=== PATIENT | female | born 1950 | race Caucasian/White ===

== ENCOUNTER 2019-01-10 11:40 | Emergency (ER) | payer MEDICARE, OTHER ==
--- OUTSIDE RECORDS SUMMARY | 2019-01-10 11:54 | XMS REPORT | Continuity of Care Document ---
:1950 External Reference #:[id number] Author Name Kenji Bagley MD Address [address] [place] [address] Care Team Providers Name Role Phone Jovany Hmuphrey NP Care Team Information [employer] Unavailable Jovany Humphrey NP Primary Care Physician Unavailable Payers Date Identification Numbers Payment Provider Subscriber Policy Number: [id number] [employer] Purnima Rajan PayID: [id number] [address] [place] [address] Policy Number: [id number] [facility] Purnima Rajan PayID: [id number] [address] [place] [address] Advance Directives Description No Information Available Problems Active Problems Provider Date Crohn's disease of large bowel Donell Crouch M.D. 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 Patient drives Tobacco Use Start: Unknown Never Smoked Cigarettes ETOH Use Rarely consumes alcohol Tobacco Use Start: Unknown Patient has never smoked Recreational Drug Use Never Used Drugs Smoking Status Reviewed: 12/27/18 Patient has never smoked Exercise Type/Frequency Exercises regularly Allergies, Adverse Reactions, Alerts Active Allergies Reaction Severity Comments Date Penicillins Difficulty breathing 07/07/2013 Tetracycline 07/07/2013 Demerol 07/07/2013 Prednisone Jittery and racing heart 07/07/2013 Bee Sting 07/07/2013 Dye 07/20/2013 Lovastatin 12/20/2014 NSAIDs pt has ulcerative 01/24/2015 colitis Medications Active Medications SIG Qnty Indications Ordering Date Provider Cyclobenzaprine HCL one tablet by 30tabs M54.5 Glendy Dickey, 06/17/2017 10mg mouth every night MD Tablets at bedtime prn Fioricet 1-2 po q6h prn Unknown 50-325-40mg h/a Tablets Magnesium one daily Unknown 400mg Capsules Riboflavin one daily Unknown 400mg Tablets Acidophilus Unknown Capsules Vitamin E one daily Unknown 400Unit Capsules Vitamin C one daily Unknown 1000mg Tablets Fluticasone Propionate Unknown 50mcg/Act Suspension Humira use under the Unknown 40mg/0.8ML PSKT skin every other week Apriso 4 caps by mouth Unknown 0.375gm Caps ER 24HR every day Arnuity Ellipta take 1 puff once Unknown 200mcg/Act a day. Aerosol Zyrtec Allergy 1 tab by mouth Unknown 10mg Tablets every night Claritin 1 tab by mouth Unknown 10mg Tablets every day as needed Ventolin HFA take 2 puffs Unknown 108(90Base) every 6 hours as mcg/Act Aerosol needed for shortness of breath. History Medications Enoxaparin Sodium 1 injection 30units Jaspreet Breaux, 03/19/2015 - subcutaneous every M.D. Unknown 40mg/0.4ML Solution day Rowasa one week; use QS 569.49 Miko, 08/16/2013 - 4gm Kit eneam bid Donell Garza, 12/20/2014 M.DDell Lovastatin 1/2 by mouth every 30tabs Unknown - 20mg Tablets day 12/20/2014 Oxybutynin Chloride po qd Unknown - 5mg Unknown Tablets Ibuprofen prn Unknown - 400mg Tablets 12/20/2014 Advair Diskus 1 puff bid Unknown - 12/20/2014 100-50mcg/Dose Aerosol Claritin prn Unknown - 10mg Capsules Unknown Theochron 1 by mouth every Unknown - 200mg Tablets day 12/20/2014 ER 12HR Cyclobenzaprine HCL 1 by mouth at 30tabs Unknown - bedtime as needed Unknown 10mg Tablets Colocort Unknown - 100mg/60ML Unknown Enema Calcium + D Unknown - 600-800 Unknown Tablets Apriso Unknown - 0.375gm Caps ER Unknown 24HR Hydrocodone-Acetamino Unknown - phen 03/19/2015 5-325mg Tablets Proctosol HC Unknown - 2.5% Cream Unknown Cyclobenzaprine HCL Unknown - Unknown 10mg Tablets Theochron Unknown - 200mg Tablets Unknown ER 12HR Medications Administered in Office Medication SIG Qnty Indications Ordering Provider Date Methylprednisolone acetate Fawn Lipscomb, 12/20/2014 (Depomedrol) 80mg injection RPAC Injection Immunizations Description No Information Available Vital Signs Date Vital Result Comment 12/27/2018 3:03pm BP Systolic Sitting Left Arm 120 mmHg BP Diastolic Sitting Left Arm 68 mmHg Heart Rate 75 /min Respiratory Rate 16 /min Height 65 inches 5'5" Weight 161.00 lb BMI (Body Mass Index) 26.8 kg/m2 BSA (Body Surface Area) 1.80 m2 [place] body weight in kilograms 57 kg O2 Saturation Level with Exercise 93 % 11/23/2018 1:06pm BP Systolic Sitting Left Arm 120 mmHg BP Diastolic Sitting Left Arm 66 mmHg Heart Rate 74 /min Respiratory Rate 18 /min Height 65 inches 5'5" Weight 164.00 lb BMI (Body Mass Index) 27.3 kg/m2 BSA (Body Surface Area) 1.82 m2 [place] body weight in kilograms 57 kg O2 % BldC Oximetry 98 % 07/24/2017 8:42am BP Systolic Sitting Left Arm 130 mmHg BP Diastolic Sitting Left Arm 79 mmHg Body Temperature 98.5 F Heart Rate 56 /min Height 65 inches 5'5" Weight 161.00 lb BMI (Body Mass Index) 26.8 kg/m2 BSA (Body Surface Area) 1.80 m2 [place] body weight in kilograms 57 kg 06/17/2017 9:51am BP Systolic Sitting Left Arm 112 mmHg BP Diastolic Sitting Left Arm 67 mmHg Body Temperature 99.1 F Heart Rate 65 /min Height 65 inches 5'5" Weight 158.00 lb BMI (Body Mass Index) 26.3 kg/m2 BSA (Body Surface Area) 1.79 m2 [place] body weight in kilograms 57 kg 05/27/2017 9:19am BP Systolic Sitting Left Arm 131 mmHg BP Diastolic Sitting Left Arm 71 mmHg Body Temperature 98.6 F Heart Rate 67 /min Height 65 inches 5'5" Weight 158.00 lb BMI (Body Mass Index) 26.3 kg/m2 BSA (Body Surface Area) 1.79 m2 [place] body weight in kilograms 57 kg 02/26/2015 10:10am Heart Rate 60 /min Height 65 inches 5'5" Weight 153.00 lb BMI (Body Mass Index) 25.5 kg/m2 BSA (Body Surface Area) 1.77 m2 12/20/2014 2:46pm BP Systolic Sitting Left Arm 138 mmHg BP Diastolic Sitting Left Arm 77 mmHg Height 64 inches 5'4" Weight 154.00 lb BMI (Body Mass Index) 26.4 kg/m2 BSA (Body Surface Area) 1.75 m2 07/20/2013 11:31am BP Systolic Sitting Right Arm 113 mmHg BP Diastolic Sitting Right Arm 68 mmHg Heart Rate 57 /min Respiratory Rate 16 /min Height 64 inches 5'4" Weight 152.00 lb BMI (Body Mass Index) 26.1 kg/m2 BSA (Body Surface Area) 1.74 m2 Results Test Date Facility Test Result H/L Range Note Allergens,Zone 11/23/2018 [facility] mRast Class (SEE NOTE) 1, [address] (Text Only) [place] [address] [phone] D Pteronyssinus <0.10 kU/L Class 0 D Farinae Mite <0.10 kU/L Class 0 Cat Hair/Dander <0.10 kU/L Class 0 Dog Hair/Dander <0.10 kU/L Class 0 Bluegrass,[place] <0.10 kU/L Class 0 Bermuda Grass <0.10 kU/L Class 0 Bahia Grass <0.10 kU/L Class 0 Cockroach,Ghanaian <0.10 kU/L Class 0 Penicillium Not <0.10 kU/L Class 0 Cladosporium Herbarum <0.10 kU/L Class 0 Apergillis Fumigatus Ige <0.10 kU/L Class 0 Mucor Racemosus <0.10 kU/L Class 0 Alternaria Alternata <0.10 kU/L Class 0 Stemphylium Bot <0.10 kU/L Class 0 Birch,White <0.10 kU/L Class 0 Artesia,White <0.10 kU/L Class 0 Elm,Ghanaian (White) <0.10 kU/L Class 0 Kel,White <0.10 kU/L Class 0 Hazelnut Tree T004 Ige <0.10 kU/L Class 0 White Pine,White <0.10 kU/L Class 0 Marion,White <0.10 kU/L Class 0 Dubois,Mountain <0.10 kU/L Class 0 Ragweed,Short/ <0.10 kU/L Class 0 Mugwort <0.10 kU/L Class 0 Plantain,Macanese <0.10 kU/L Class 0 Pigweed,Rough <0.10 kU/L Class 0 Sheep Runnells (DO <0.10 kU/L Class 0 Nettle <0.10 kU/L Class 0 Maple/[place] Ige T001 <0.10 kU/L Class 0 CBC W/Automated Diff 11/23/2018 [facility] White Blood 6.6 K/uL N 3.1-10.[address] [place] [address] [phone] Red Blood Count 4.53 M/uL N 3.90-5.40 Hemoglobin 12.9 gm/dL N 11.6-15.8 Hematocrit 39.6 % N 36.0-46.1 Mean Cell Volume 87.4 fl N 80.9-99.0 Mean Corpuscular HGB 28.5 pg N 25.9-32.7 Mean Corpuscular HGB Conc 32.6 g/dL N 30.8-34.3 Platelet Count 279 K/uL N 155-360 Red Cell Distri Width SD 42.3 fl N 36-47 Red Cell Distri Width %CV 13.6 % N 11.7-14.4 Mean Platelet Volume 9.4 fL N 8.9-12.4 Neut% 58.2 % N 40.4-72.8 Lymph % 30.2 % N 20.0-42.0 Mifflin % 10.2 % N 4.3-13.2 Eo% 1.2 % N 0.0-6.6 Bas% 0.2 % N 0.0-1.1 Neut# 3.84 K/uL N 1.8-7.0 Lymph # 1.99 K/uL N 1.0-4.0 Mifflin # 0.67 K/uL N 0.3-0.9 Eos # 0.08 K/uL N 0.0-0.5 Baso # 0.01 K/uL N 0.0-0.1 Laboratory test 11/23/2018 [facility] Immunoglobulin 12 6-[address] E,Total IU/[place] [address] [phone] Glucose 04/14/2017 N2N/CCD Import Glucose 88 74-106 [Mass/volume] in [Mass/volume] in Serum or Plasma Serum or Plasma Hct VFr Bld Auto 04/14/2017 N2N/CCD Import Hct VFr Bld Auto 40.1 36.0- 46.1 MCV RBC Auto 04/14/2017 N2N/CCD Import MCV RBC Auto 87.6 80.9-99.0 PMV Bld Auto 04/14/2017 N2N/CCD Import PMV Bld Auto 10.0 8.9-12.4 Platelets 04/14/2017 N2N/CCD Import Platelets 322 150-400 [#/volume] in [#/volume] in Blood by Automated Blood by Automated count count Potassium 04/14/2017 N2N/CCD Import Potassium 4.1 3.5-5.1 SerPl-sCnc SerPl-sCnc Prot SerPl-mCnc 04/14/2017 N2N/CCD Import Prot SerPl-mCnc 7.8 6.4-8.2 RDW RBC Auto-Rto 04/14/2017 N2N/CCD Import RDW RBC Auto-Rto 13.3 11.7- 14.4 Serum or plasma 04/14/2017 N2N/CCD Import Serum or plasma 0.2 0.2-1.0 total bilirubin total bilirubin measurement (mass/ measurement (mass/volume) Sodium SerPl-sCnc 04/14/2017 N2N/CCD Import Sodium SerPl-sCnc 140 136- 145 WBC # Bld Auto 04/14/2017 N2N/CCD Import WBC # Bld Auto 7.1 3.1-10.7 Alp SerPl-cCnc 04/14/2017 N2N/CCD Import Alp SerPl-cCnc 78 45-117 Alt SerPl-cCnc 04/14/2017 N2N/CCD Import Alt SerPl-cCnc 30 12-78 Albumin SerPl-mCnc 04/14/2017 N2N/CCD Import Albumin SerPl-mCnc 4.0 3.4- 5.0 Albumin/Glob SerPl 04/14/2017 N2N/CCD Import Albumin/Glob SerPl 1.1 Anion Gap 04/14/2017 N2N/CCD Import Anion Gap 8 8-16 SerPl-sCnc SerPl-sCnc Aspartate 04/14/2017 N2N/CCD Import Aspartate 22 15-37 aminotransferase aminotransferase [Enzymatic [Enzymatic activity/vol activity/volume] in Serum or Plasma Automated 04/14/2017 N2N/CCD Import Automated 28.6 25.9-32.7 erythrocyte mean erythrocyte mean corpuscular corpuscular hemoglobin hemoglobin (mass per erythrocyte) Automated 04/14/2017 N2N/CCD Import Automated 32.7 30.8-34.3 erythrocyte mean erythrocyte mean corpuscular corpuscular hemoglobin hemoglobin concentration measurement (mass/volume) BUN SerPl-mCnc 04/14/2017 N2N/CCD Import BUN SerPl-mCnc 15 7-18 BUN/Creat SerPl 04/14/2017 N2N/CCD Import BUN/Creat SerPl 21.4 Blood erythrocytes 04/14/2017 N2N/CCD Import Blood erythrocytes 4.58 3.90-5.40 automated count automated count (number/volume) (number/volume) Blood hemoglobin 04/14/2017 N2N/CCD Import Blood hemoglobin 13.1 11.6- 15.8 measurement measurement (mass/volume) (mass/volume) Co2 SerPl-sCnc 04/14/2017 N2N/CCD Import Co2 SerPl-sCnc 30 21-32 Calcium SerPl-mCnc 04/14/2017 N2N/CCD Import Calcium SerPl-mCnc 8.8 8.5- 10.1 Chloride 04/14/2017 N2N/CCD Import Chloride 102 98-107 SerPl-sCnc SerPl-sCnc Creat SerPl-mCnc 04/14/2017 N2N/CCD Import Creat SerPl-mCnc 0.7 0.6-1.3 Erythrocyte 04/14/2017 N2N/CCD Import Erythrocyte 3 0-30 sedimentation rate sedimentation rate by 15 minute by 15 minute readin reading Globulin Ser 04/14/2017 N2N/CCD Import Globulin Ser 3.8 1.9-4.3 Calc-mCnc Calc-mCnc Laboratory test 08/16/2013 [facility] Polyp Colon And/Or See cryptitis [address] [place] [place] [address] [phone] 1 J30.89 2 Levels of Specific IgE Class Description of Class ----- < 0.10 0 Negative 0.10 - 0.31 0/I Equivocal/Low 0.32 - 0.55 I Low 0.56 - 1.40 II Moderate 1.41 - 3.90 III High 3.91 - 19.00 IV Very High 19.01 - 100.00 V Very High >100.00 Very High 3 Please note reference interval change Test(s) [id number] Cockroach, Ghanaian; 609154- [id number] Elsy Isaac were developed and had performance characteristics determined by [facility]. These tests have not been cleared or approved by the U.S. Food and Drug Administration. The FDA has determined that such clearance or approval is not necessary. These tests are used for clinical purposes. These should not be regarded as investigational or for research. Performed at: [address] [id number] [place] Mason: Zoila Tracy MD, Phone: [phone] OPERATION/PROCEDURE Colonoscopy with biopsies DIAGNOSIS: PART 1: "SIGMOID COLON, RANDOM BIOPSIES": COLITIS, MODERATE, WITH CRYPTITIS. PART 2: "RECTUM, BIOPSIES": PROCTITIS, MODERATE, WITH CRYPTITIS. Luis Alberto GROSS Part 1; "RANDOM SIGMOID BIOPSIES". The specimen is received in an appropriately labeled container. This contains one rounded dsouza colored piece of soft tissue measuring up to 0.4 cm.; filtered and submitted in toto within a single cassette. Part 2; "RECTAL BIOPSIES". The specimen is received in an appropriately labeled container. This contains two rounded dsouza colored pieces of soft tissue measuring up to 0.2 cm.; filtered and submitted in toto within a single cassette. Luis Alberto MICROSCOPIC Part 1: Sections reveal markedly inflamed colonic mucosa with hemorrhage, and confluent acute and chronic inflammation. Inflammatory cells surround and infiltrate individual glands. The glands are shortened, angularly distorted, with markedly increased crypt mitotic activity. Crypt abscesses are not seen. Part 2: Sections reveal markedly inflamed colonic mucosa with hemorrhage, and confluent acute and chronic inflammation. Inflammatory cells surround and infiltrate individual glands. The glands are shortened, angularly distorted, with markedly increased crypt mitotic activity. The nuclei within the crypts show regenerative atypia, with prominent nucleoli. PRE OPERATIVE DIAGNOSIS Rectal bleeding, change in bowel habits REVIEW CODE CODE: I ISABEL Jules MD 08/17/13 1310 Procedures Date Code Description Status 11/29/2018 74916 Bronchospasm Provocation Evaluation Multi Spirometric Completed Determinati 11/29/2018 17443 Spirometry Completed 03/06/2015 79639 Arthroscopy knee w/menisectomy med & lat including Completed meniscal shavi 03/06/2015 96700 Arthroscopy synovectomy limited (separate procedure) Completed 03/06/2015 12832 Anesthesia, Knee Joint Surgery Open/Surg Completed Arthroscopic,NOS 12/20/2014 27267 Asp./Injection major joint Completed 08/16/2013 67727 Colonoscopy With Biopsy Completed 05/22/2013 10870407 Mammogram Completed 02/16/2009 26324 Echocardiogram Complete Completed 02/16/2009 77482 Stress Test Interpre And Report Only Completed 02/16/2009 96148 Stress Test Physician Super Only Completed 09/21/2008 793936700 Bone Mineral Density Test Completed 09/21/1996 89070199 Colonoscopy Completed Encounters Type Date Location Provider Dx Diagnosis Office Visit 11/23/2018 Pulmonology Kenji Bagley MD J45.20 Mild intermittent 1:00p asthma, uncomplicated J30.89 Other allergic rhinitis Z01.818 Encounter for other preprocedural examination J32.9 Chronic sinusitis, unspecified Office Visit 07/24/2017 9:00a Physical Medicine Keli M47.896 Other spondylosis, & Infectious MD Glendy lumbar region Disease M54.5 Low back pain M25.571 Pain in right ankle and joints of right foot Office Visit 06/17/2017 10:00a Physical Medicine Glendy Dickey, M25.571 Pain in right & Infectious MD ankle and Disease joints of right foot M47.896 Other spondylosis, lumbar region M54.5 Low back pain Office Visit 05/27/2017 9:30a Physical Medicine Tonya Dickey7.896 Other spondylosis, & Infectious MD Glendy lumbar region Disease M54.5 Low back pain Office Visit 06/27/2015 9:15a Orthopaedic Office Jaspreet Breaux, M23.222 Derang of post M.D. 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 Lower Leg 717.2 Derangement Posterior Horn Medial Meniscus 717.43 Derangement Posterior Horn Lateral Meniscus Office Visit 01/24/2015 Orthopaedic Lipscomb, 715.16 Osteoarthrosis 9:00a Office Fawn S., Localized Prim RPAC Lower Leg 719.06 Effusion Joint Lower Leg 719.46 Pain Joint Lower Leg 717.2 Derangement Posterior Horn Medial Meniscus 717.43 Derangement Posterior Horn Lateral Meniscus Office Visit 01/15/2015 Orthopaedic Lipscomb, 715.16 Osteoarthrosis 8:45a Office Fawn S., Localized Prim RPAC Lower Leg 719.46 Pain Joint Lower Leg Office Visit 12/20/2014 Orthopaedic Lipscomb, 715.16 Osteoarthrosis 3:00p Office Fawn S., Localized Prim RPAC Lower Leg 719.46 Pain Joint Lower Leg Office Visit 09/01/2013 2:00p Surgical Miko, V67.09 Follow Up Office Donell Garza Examination Kathryn Following Other Surgery 555.1 Enteritis Large Intestine 562.10 Diverticulosis Colon W/O Hemorrhage Office Visit 07/20/2013 11:30a Surgical Office Miko, 569.3 Hemorrhage Donell Garza, Rectum & Anus MVishal 787.99 Digestive Symptoms Other V76.51 Special Screening For Malignant Neoplasms Colon Plan of Treatment Future Appointment(s):06/29/2019 8:20 am - Clarita Ulloa PA at [email or web address]/ 08/2019 - Kenji Bagley MDJ45.20 Mild intermittent asthma, uncomplicatedComments :I reviewed testing results. Symptoms of cough are likely related to asthma and allergies. Symptoms are better without any change in medication. Advised to continue with Arnuity and as needed albuterol.Follow up:6 months.J30.89 Other allergic rhinitisComments:Negative RAST, low IgE. Follow up with Dr. Donell Robles. Continue with Flonase and Claritin/Zyrtec. Can use Neti Pot if more symptomatic.
[2019-01-10 12:11] VITALS: BP 141/84
--- NOTE | 2019-01-10 12:55 | UC ---
UC General HPI - HPI Summary HPI Summary: 2 days ago, pt injury her L hand in an attempt to catch herself during a near fall. she notes pain along the back of her middle finger into the hand with swelling to back of the hand. 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 - History of Current Complaint Chief Complaint: UCUpperExtremity Stated Complaint: LEFT HAND INJURY Time Seen by Provider: 01/10/19 12:41 Hx Obtained From: Patient Timing: Constant Pain Intensity: 4 Aggravating: movement Associated Signs & Symptoms: Positive: Edema, Weakness. Negative: Fever - Allergy/Home Medications Allergies/Adverse Reactions: Allergies Allergy/AdvReac Type Severity Reaction Status Date / Time aspirin Allergy Bleeding Verified 01/10/19 12:03 ibuprofen Allergy Bleeding Verified 01/10/19 12:03 meperidine [From Demerol] Allergy syncope Verified 01/10/19 12:03 Penicillins Allergy Rash Verified 01/10/19 12:03 prednisone Allergy Tachycardia, Verified 01/10/19 12:03 shakes Tetracyclines Allergy Rash Verified 01/10/19 12:03 bee sting Allergy Anaphylatic Uncoded 01/10/19 12:03 Shock environmental Allergy Congestion Uncoded 01/10/19 12:03 statins Allergy Pain Uncoded 01/10/19 12:03 Home Medications: Home Medications Adalimumab (NF) [Humira (NF) Pen Injector Kit] 80 mg SUBCUT SEE INSTRUCTIONS [History Confirmed 01/10/19] Cetirizine* [ZyrTEC 10 MG TAB*] 10 mg PO DAILY 01/10/19 [History Confirmed 01/10] Desloratidine (NF) [Clarinex (NF)] 5 mg PO DAILY 01/10/19 [History Confirmed ] Fluticasone/Vilanterol [Breo Ellipta 200-25 Mcg INH] 1 each IH DAILY 01/10/19 [ History Confirmed 01/10/19] PMH/Surg Hx/FS Hx/Imm Hx - Additional Past Medical History Additional PMH: ulcerative colitis - Surgical History Surgical History: Yes Surgery Procedure, Year, and Place: left foot 06/17/18; sinus; other. knee - Family History Known Family History: Positive: Other - adopted...know little of her family history - Social History Alcohol Use: Rare Substance Use Type: None Smoking Status (MU): Never Smoked Tobacco Review of Systems All Other Systems Reviewed And Are Negative: No Constitutional: Negative: Fever Musculoskeletal: Positive: Edema - L dorsal hand. Negative: Decreased ROM Neurological: Positive: Weakness - L hand. Negative: Paresthesia, Numbness Physical Exam Triage Information Reviewed: Yes Appearance: Well-Appearing Vital Signs: Initial Vital Signs Temp 98.4 F 01/10/19 12:07 Pulse 62 01/10/19 12:07 Resp 16 01/10/19 12:07 BP 141/84 01/10/19 12:07 Pulse Ox 97 01/10/19 12:07 Vital Signs Reviewed: Yes Eyes: Positive: Conjunctiva Clear Respiratory: Positive: Lungs clear Cardiovascular: Positive: RRR Musculoskeletal: Positive: Other: - LUE= shoulder, elbow and wrist are non tender. hand=dorsal swelling and mild swelling into fingers. Tender over dorsal middle finger into corresponding hand. The fingers have full s/v/m function; however, extension of the middle finger against resistance causes pain and pt notes difficulty straigtening against the resistance. Neurological: Positive: Alert Psychological: Positive: Age Appropriate Behavior Skin Exam: Normal Diagnostics - Radiology No standard instances Radiology Interpretation Completed By: Radiologist - L hand=IMPRESSION: 1. OSTEOPENIA. 2. OSTEOARTHRITIS. 3. NO ACUTE OSSEOUS INJURY. IF SYMPTOMS PERSIST, RECOMMEND REPEAT IMAGING. Course/Dx - Course Course Of Treatment: PROCEDURE BY THIS PA: volar aluminum foam splint applied to L middle finer/palm and was held with an armin. fingers had s/v pre and post. - Differential Dx - Multi-Symptom Differential Diagnoses: Other - no concern for infection, dislocation and no fx on xray. exam c/w a L middle finger extensor tendon injury. loss of surtass analyst thus will refer to hand orthopedist - Diagnoses Provider Diagnosis: Tendon injury Discharge - Sign-Out/Discharge Documenting (check all that apply): Patient Departure All imaging exams completed and their final reports reviewed: Yes - Discharge Plan Condition: Stable Disposition: HOME Patient Education Materials: Splint Care (ED), Finger Sprain (ED) Referrals: Mita Lane MD [Medical Doctor] - As Soon As Possible - Billing Disposition and Condition Condition: STABLE Disposition: Home - Attestation Statements Provider Attestation: I was available for consult. This patient was seen by the ALAN. The patient was not presented to, seen by, or examined by me. -Amy
== END 2019-01-10 13:27 | disposition home or self-care (01) ==
LOC: UCCORT 11:40
DX: S66.902A Unspecified injury of unspecified muscle, fascia and tendon at wrist and hand level, left hand, initial encounter (principal); W18.30XA Fall on same level, unspecified, initial encounter; M85.842 Other specified disorders of bone density and structure, left hand; M19.042 Primary osteoarthritis, left hand; K51.90 Ulcerative colitis, unspecified, without complications; Z88.6 Allergy status to analgesic agent; Z88.0 Allergy status to penicillin; Z88.8 Allergy status to other drugs, medicaments and biological substances
CPT/HCPCS: 99212; G0463

== ENCOUNTER 2019-05-05 16:36 | Emergency (ER) | payer MEDICARE, OTHER ==
--- OUTSIDE RECORDS SUMMARY | 2019-05-05 16:45 | XMS REPORT | Continuity of Care Document ---
:1950 External Reference #:[id number] Author Name Jaimee Kelly Care Team Providers Name Role Phone Eliane Humphrey FNP Care Team Information Soc Analyst Unavailable Eliane Humphrey FNP Primary Care Physician Unavailable Payers Date Identification Numbers Payment Provider Subscriber Policy Number: [id number] [employer] Advant Purnima Rajan PayID: [id number] [address] [place] [address] Problems Active Problems Provider Date Allergic urticaria Donell Robles MD Onset: 09/01/2017 Allergy to other foods Donell Robles MD Onset: 09/01/2017 Idiopathic urticaria Olinda Mueller RPA-C Onset: 10/01/2017 Uncomplicated moderate persistent Olinda Mueller RPA-C Onset: 2017 asthma Allergic rhinitis due to pollen JOEY Parnell Onset: 2017 Allergic rhinitis Olinda Mueller RPA-C Onset: 10/01/2017 Social History Type Date Description Comments Sex Unknown Home Environment Does not have an air conditioner Home Environment Unfinished Basement Home Environment The basement is wet and sump pump used Home Environment There are draperies in the home Home Environment The floors are carpeted Home Environment The floors are tile Home Environment Uses oil heating Smoke-Free Home is smoke-free Smoke-Free Work is smoke-free Pets 1 cat Tobacco Use Start: Unknown Patient has never smoked Tobacco Use Start: Unknown No Second Hand Smoke Exposure Smoking Status Reviewed: 12/30/18 No Second Hand Smoke Exposure Allergies, Adverse Reactions, Alerts Active Allergies Reaction Severity Comments Date Penicillin 09/01/2017 Prednisone 09/01/2017 Tetracycline 09/01/2017 Meperidine 09/01/2017 Aspirin 09/01/2017 NSAIDS 09/01/2017 Lovastatin 09/01/2017 Bee Sting 09/01/2017 Oxycodone 07/01/2018 Medications Active Medications SIG Qnty Indications Ordering Provider Date Breo Ellipta inhale one puff 28units J45.40 Donell Sandoval 12/30/2018 once a day. MD Travis 200-25mcg/Inh rinse mouth Aerosol after use. Fluticasone spray 2 sprays 16gm J30.1 Donell Sandoval 12/30/2018 Propionate in each nostril MD Travis 50mcg/Act daily Suspension Auvi-Q use as needed 2units Mor Hernandez, 07/02/2018 0.3mg/0.3ML for severe RPA-C Solution Auto-Inject allergic reactions Zyrtec Allergy one tablet by 30tabs L50.1 Donell Sandoval 12/24/2017 10mg mouth every MD Travis Tablets evening Desloratadine take one tablet 30tabs L50.1 Donell Sandoval 10/01/2017 5mg by mouth daily MD Travis Tablets in the morning. Claritin one tablet by 30tabs L50.0 Donell Sandoval 09/01/2017 10mg Tablets mouth every MD Travis morning Cranberry Unknown Concentrate Triple Strength Ultra/Vitamin C [id number] Capsules Tramadol HCL Ted Javier MD 50mg Tablets Vitamin D High Unknown Potency 1000Unit Capsules Vitamin C Unknown W/Vitamin E [id number] Capsules Riboflavin Unknown 400mg Tablets Magnesium Unknown 400mg Tablets Calcium 600+D High Unknown Potency [id number] Tablets Acidophilus Unknown Probiotic 10mg Capsules Humira Pen Unknown 40mg/0.8ML PNKT Apriso Unknown 0.375gm Caps ER 24HR History Medications Epipen 2-Ron as directed 4units Donell Sandoval 07/01/2018 - 0.3mg/0.3ML MD Travis 07/02/2018 Solution Auto-Inject Mometasone Furoate [place] two 17units J30.1 Donell Sandoval 07/01/2018 - sprays in each MD Travis 12/30/2018 50mcg/Act Suspension nostril once daily. Arnuity Ellipta Inhale one puff 30units J45.40 Donell Sandoval 07/01/2018 - by mouth once MD Travis 12/30/2018 200mcg/Act Aerosol daily. Rinse mouth after use. Levocetirizine Take one tablet 30tabs L50.1 Donell Sandoval 10/01/2017 - Dihydrochloride by mouth daily MD Travis 12/24/2017 5mg at bedtime Tablets Breo Ellipta inhale one puff 60units Donell Sandoval 09/01/2017 - once a day MD Travis 07/01/2018 200-25mcg/Inh Aerosol Zyrtec Allergy one tablet by [facility]2017 - 10mg mouth every MD Travis 10/01/2017 Tablets evening Fluticasone Propionate spray 2 sprays Unknown - in each nostril 12/30/2018 50mcg/Act Suspension daily Oxybutynin Chloride ER Unknown - 12/30/2018 5mg Tablets ER 24HR Theophylline ER 1 tab by mouth Unknown - 200mg twice a day 07/01/2018 Tablets ER 12HR Proctosol HC Unknown - 2.5% Cream 07/01/2018 Butalbital-Apap Unknown - 50-325mg 07/01/2018 Tablets Colocort Unknown - 100mg/60ML Enema 12/30/2018 Sumatriptan Succinate Zahra Rudolph FNP - 12/30/2018 100mg Tablets Oxybutynin Chloride Unknown - 5mg 07/01/2018 Tablets Vital Signs Date Vital Result Comment 04/14/2019 10:48am BP Systolic 134 mmHg BP Diastolic 84 mmHg Height 63 inches 5'3" Weight 162.00 lb BMI (Body Mass Index) 28.7 kg/m2 Heart Rate 64 /min Respiratory Rate 16 /min O2 % BldC Oximetry 98 % 12/30/2018 10:35am BP Systolic 128 mmHg BP Diastolic 64 mmHg Height 63 inches 5'3" Weight 163.00 lb BMI (Body Mass Index) 28.9 kg/m2 Heart Rate 60 /min Respiratory Rate 18 /min Body Temperature 98.3 F O2 % BldC Oximetry 93 % 07/01/2018 10:28am BP Systolic 112 mmHg BP Diastolic 64 mmHg Height 63 inches 5'3" Heart Rate 58 /min Respiratory Rate 18 /min Body Temperature 99.1 F O2 % BldC Oximetry 99 % 12/24/2017 9:59am Height 63 inches 5'3" Weight 163.00 lb BMI (Body Mass Index) 28.9 kg/m2 Heart Rate 62 /min Respiratory Rate 16 /min Body Temperature 98.2 F O2 % BldC Oximetry 98 % 10/01/2017 10:04am Height 63 inches 5'3" Weight 159.00 lb BMI (Body Mass Index) 28.2 kg/m2 Heart Rate 71 /min Respiratory Rate 16 /min Body Temperature 98.6 F O2 % BldC Oximetry 96 % 09/01/2017 10:25am BP Systolic 120 mmHg BP Diastolic 80 mmHg Height 63 inches 5'3" Weight 159.00 lb BMI (Body Mass Index) 28.2 kg/m2 Heart Rate 82 /min Body Temperature 99.0 F O2 % BldC Oximetry 95 % Results Test Date Facility Test Result H/L Range Note Order 07/01/2018 [facility] Nitric Oxide <pending> PFT Supplies <pending> PFT With Bronchodilator <pending> Procedures Date Code Description Status 12/30/2018 38151 Nitric Oxide Gas Determination Completed 12/30/2018 87648 Bronchodilation Responsiveness Spirometry Pre/Post Completed Bronchodil Adm 07/01/2018 93843 Nitric Oxide Gas Determination Completed 07/01/2018 32658 Bronchodilation Responsiveness Spirometry Pre/Post Completed Bronchodil Adm 12/24/2017 81373 Nitric Oxide Gas Determination Completed 12/24/2017 33615 Nitric Oxide Gas Determination Completed 12/24/2017 30478 Bronchodilation Responsiveness Spirometry Pre/Post Completed Bronchodil Adm 12/24/2017 48159 Bronchodilation Responsiveness Spirometry Pre/Post Completed Bronchodil Adm 09/01/2017 46354 Allergy Tests Percutaneous W/ Allergenic Extracts Completed Encounters Type Date Location Provider Dx Diagnosis Office Visit 12/30/2018 [place] One[place] J45.40 Moderate persistent 10:00a [place], asthma, uncomplicated RPA-C J30.1 Allergic rhinitis due to pollen J30.89 Other allergic rhinitis Office Visit 07/01/2018 10:00a [place] Olinda Oneill J45.40 Moderate persistent [place], RPA-C asthma, uncomplicated J30.1 Allergic rhinitis due to pollen J30.89 Other allergic rhinitis L50.1 Idiopathic urticaria Office Visit 12/24/2017 10:00a KENDRICK Swan J30.89 Other allergic rhinitis L50.0 Allergic urticaria J30.1 Allergic rhinitis due to pollen J45.40 Moderate persistent asthma, uncomplicated Office Visit 10/01/2017 10:00a [place] Olinda Oneill L50.1 Idiopathic [place], RPA-C urticaria J45.40 Moderate persistent asthma, uncomplicated J30.1 Allergic rhinitis due to pollen J30.89 Other allergic rhinitis Office Visit 09/01/2017 10:30a [place] Robles, L50.0 Allergic urticaria Z91.018 Allergy to other foods Plan of Treatment 12/30/2018 - Olinda Oneill [place], RPA-CJ45.40 Moderate persistent asthma, uncomplicatedNew Medication:Breo Ellipta 200-25 mcg/Inh - inhale one puff once a day. rinse mouth after use.Comments:Patient with persistent wheezing following a bronchial infection in October. Today's PFT is within normal limits. NIOX is 19ppb. I will restart Breo 200/25 as daily prophylaxis of the chest. Continue Ventolin as needed for breakthrough coughing, wheezing and/or shortness of breath. Patient to follow-up in 3 months, sooner if wheezing persists.Follow up:3 months.J30.1 Allergic rhinitis due to pollenNew Medication: Fluticasone Propionate 50 mcg/Act - spray 2 sprays in each nostril dailyComments :Patient recently had allergy testing at Dr. Bagley's office. I will obtain a copy of these results. Ihave reviewed environmental controls for common indoor and outdoor allergens. Patient has history ofmultiple systemic reactions requiring treatment with Epinephrine when she received immunotherapy at Dr. Yoo's office. I would not recommend immunotherapy for this patient. Continue Fluticasone and Zyrtec as prescribed. Okay to use Clarinex as needed for breakthrough seasonal allergy symptoms.Follow up:3 months.J30.89 Other allergic rhinitis
--- OUTSIDE RECORDS SUMMARY | 2019-05-05 16:45 | XMS REPORT | Continuity of Care Document ---
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 Eliane Humphrey FNP Primary Care Physician Unavailable Payers Date Identification Numbers Payment Provider Subscriber Policy Number: [id number] [employer] Advant Purnima Rajan PayID: [id number] [address] [place] [address] Problems Active Problems Provider Date Allergic urticaria Donell Robles MD Onset: 09/01/2017 Allergy to other foods Donell Robles MD Onset: 09/01/2017 Idiopathic urticaria Olinda Mueller RPA-C Onset: 10/01/2017 Uncomplicated moderate persistent Olinda Mueller RPA-C Onset: 2017 asthma Allergic rhinitis due to pollen Olinda Mueller RPA-C Onset: 2017 Allergic rhinitis Olinda Mueller RPA-C [...] Second Hand Smoke Exposure Smoking Status Reviewed: 04/14/19 No Second Hand Smoke Exposure Allergies, Adverse Reactions, Alerts Active Allergies Reaction Severity Comments Date Penicillin 09/01/2017 Prednisone 09/01/2017 Tetracycline 09/01/2017 Meperidine 09/01/2017 Aspirin 09/01/2017 NSAIDS 09/01/2017 Lovastatin 09/01/2017 Bee Sting 09/01/2017 Oxycodone 07/01/2018 Medications Active Medications SIG Qnty Indications Ordering Provider Date Breo Ellipta inhale one puff 28units J45.40 Christopher A. 12/30/2018 once a day. MD Travis 200-25mcg/Inh rinse mouth Aerosol after use. Fluticasone spray 2 sprays 16gm J30.1 Christopher A. 12/30/2018 Propionate in each nostril MD Travis 50mcg/Act daily Suspension Auvi-Q use as needed 2units Mor Hernandez 07/02/2018 0.3mg/0.3ML for severe RPA-C Solution Auto-Inject allergic reactions Zyrtec Allergy one tablet by 30tabs L50.1 Christopher A. 12/24/2017 10mg mouth every MD Travis Tablets evening Desloratadine take one tablet 30tabs L50.1 Christopher A. 10/01/2017 5mg by mouth daily MD Travis Tablets in the morning. Claritin one tablet by 30tabs L50.0 Christopher A. 09/01/2017 10mg Tablets mouth every MD Travis morning Cranberry Unknown Concentrate Triple Strength Ultra/Vitamin C 31278-833vu Capsules Tramadol HCL Ted Javier MD 50mg Tablets Vitamin D High Unknown Potency 1000Unit Capsules Vitamin C Unknown W/Vitamin E [id number] Capsules Riboflavin Unknown 400mg Tablets Magnesium Unknown 400mg Tablets Calcium 600+D High Unknown Potency [id number] Tablets Acidophilus Unknown Probiotic 10mg Capsules Humira Pen Unknown 40mg/0.8ML PNKT Apriso Unknown 0.375gm Caps ER 24HR History Medications Epipen 2-Ron as directed 4units Donell Sandoval 07/01/2018 - 0.3mg/0.3ML MD Travis 07/02/2018 Solution Auto-Inject Mometasone Furoate [place] two 17units J30.1 Donell Sandoval 07/01/2018 - [...] Zyrtec Allergy one tablet by 30tabs L50.0 Donell Sandoval 09/01/2017 - 10mg mouth every MD [...] Test Result H/L Range Note Order 07/01/2018 [facility] Nitric Oxide <pending> PFT Supplies <pending> PFT With Bronchodilator <pending> Procedures Date Code Description Status 12/30/2018 93567 Nitric Oxide Gas Determination Completed 12/30/2018 89376 Bronchodilation Responsiveness Spirometry Pre/Post Completed Bronchodil Adm 07/01/2018 83014 Nitric Oxide Gas Determination Completed 07/01/2018 12934 Bronchodilation Responsiveness Spirometry Pre/Post Completed Bronchodil Adm 12/24/2017 51676 Nitric Oxide Gas Determination Completed 12/24/2017 69075 Nitric Oxide Gas Determination Completed 12/24/2017 00711 Bronchodilation Responsiveness Spirometry Pre/Post Completed Bronchodil Adm 12/24/2017 48729 Bronchodilation Responsiveness Spirometry Pre/Post Completed Bronchodil Adm 09/01/2017 16665 Allergy Tests Percutaneous W/ Allergenic Extracts Completed Encounters Type Date Location Provider Dx Diagnosis Office Visit 04/14/2019 [place] Olinda Oneill J45.40 Moderate persistent 11:00a Fenst[place]acher, asthma, uncomplicated RPA-C J30.1 Allergic rhinitis due to pollen J30.89 Other allergic rhinitis Office Visit 12/30/2018 10:00a [place] Olinda Oneill J45.40 Moderate persistent Fen[place]acher, RPA-C asthma, uncomplicated J30.1 Allergic rhinitis due to pollen J30.89 Other allergic rhinitis Office Visit 07/01/2018 10:00a [place] Olinda Oneill J45.40 Moderate persistent Fenstermacher, RPA-C asthma, uncomplicated J30.1 Allergic rhinitis due to pollen J30.89 Other allergic rhinitis L50.1 Idiopathic urticaria Office Visit 12/24/2017 10:00a [place] KENDRICK Hayden J30.89 Other allergic rhinitis L50.0 Allergic urticaria J30.1 Allergic rhinitis due to pollen J45.40 Moderate persistent asthma, uncomplicated Office Visit 10/01/2017 10:00a [place] Olinda Oneill L50.1 Idiopathic [place]acher, RPA-C urticaria J45.40 Moderate persistent asthma, uncomplicated J30.1 Allergic rhinitis due to pollen J30.89 Other allergic rhinitis Office Visit 09/01/2017 10:30a [place] Donell Robles L50.0 Allergic urticaria Z91.018 Allergy to other foods Plan of Treatment Future Appointment(s):10/20/2019 10:30 am - Olinda NoestermMARTA wilkinson-C at [facility]/25/2019 - Olinda Oneill FenstermacheMARTA hensley-CJ45.40 Moderate persistent asthma, uncomplicatedComments:Asthma control has improved with daily use of Breo 200/25. She continues to have intermittent wheezing, especially on hot/ humid days. I have advised her to use Albuterol Q4 hours as needed. It is best to stay in an air conditioned environment on hot/humid days. I will repeat PFT/ NIOX at 6 month follow-up. Patient to contact the office sooner if she is having increased asthma symptoms.Follow up:6 months - w/PFT and NIOX prior to xtppnI90.1 Allergic rhinitis due to pollenComments:Continue Zyrtec and Flonase as prescribed. Okay to add Desloratadine during times of increased allergy symptoms. I discussed with patient that she does not need to use two daily antihistamines unless she is having breakthrough symptoms.Follow up:6 months.J30.89 Other allergic rhinitis
[2019-05-05 16:54] VITALS: BP 143/66
--- NOTE | 2019-05-05 16:56 | UC ---
Throat Pain/Nasal Manoj HPI - HPI Summary HPI Summary: 68-year-old female who has had sinus pressure and purulent nasal drainage over the past 10 days. Her primary care provider is trying to get her into an ear nose and throat physician however that office visit is pending. - History of Current Complaint Chief Complaint: UCGeneralIllness Stated Complaint: CONGESTION Time Seen by Provider: 05/05/19 16:44 Hx Obtained From: Patient ?: No Onset/Duration: Gradual Onset Severity: Moderate Pain Intensity: 5 Cough: None Associated Signs & Symptoms: Positive: Negative Related History: Seasonal Allergies - Allergies/Home Medications Allergies/Adverse Reactions: Allergies Allergy/AdvReac Type Severity Reaction Status Date / Time aspirin Allergy Bleeding Verified 05/05/19 16:45 ibuprofen Allergy Bleeding Verified 05/05/19 16:45 meperidine [From Demerol] Allergy syncope Verified 05/05/19 16:45 Penicillins Allergy Rash Verified 05/05/19 16:45 prednisone Allergy Tachycardia, Verified 05/05/19 16:45 shakes Tetracyclines Allergy Rash Verified 05/05/19 16:45 bee sting Allergy Anaphylatic Uncoded 05/05/19 16:45 Shock environmental Allergy Congestion Uncoded 05/05/19 16:45 statins Allergy Pain Uncoded 05/05/19 16:45 Home Medications: Home Medications Fluticasone NASAL SPRAY 50MCG* [Flonase NASAL SPRAY 50MCG*] 2 spray BOTH NARES DAILY 05/05/19 [History Confirmed 05/05/19] Guaifen/Phenyleph/Acetaminophn [Sinus Congestion & Pain S 5-325-200 mg] 2 tab PO Q4H PRN 05/05/19 [History Confirmed 05/05/19] PMH/Surg Hx/FS Hx/Imm Hx Previously Healthy: Yes Respiratory History: Asthma GI/ History: Diverticulitis, Other - Ulcerative colitis - Surgical History Surgical History: Yes Surgery Procedure, Year, and Place: left foot 06/17/18; sinus; left knee, cervical sx with hardware placed. - Family History Known Family History: Positive: Other - adopted...know little of her family history - Social History Alcohol Use: Weekly Substance Use Type: None Smoking Status (MU): Never Smoked Tobacco Review of Systems All Other Systems Reviewed And Are Negative: Yes ENT: Positive: Nasal Discharge, Sinus Congestion, Sinus Pain/Tenderness Is Patient Immunocompromised?: No Physical Exam Triage Information Reviewed: Yes Appearance: Well-Appearing, No Pain Distress, Well-Nourished Vital Signs: Initial Vital Signs Temp 98 F 05/05/19 16:49 Pulse 61 05/05/19 16:49 Resp 20 05/05/19 16:49 BP 143/66 05/05/19 16:49 Pulse Ox 99 05/05/19 16:49 Vital Signs Reviewed: Yes Eyes: Positive: Conjunctiva Clear ENT: Positive: Nasal congestion, Nasal drainage, TMs normal, Sinus tenderness - Bilateral maxillary sinus tenderness on palpation. Yellow purulent nasal coryza., Uvula midline Neck: Positive: Supple, Nontender, No Lymphadenopathy Respiratory: Positive: Lungs clear, Normal breath sounds, No respiratory distress, No accessory muscle use Cardiovascular: Positive: RRR, No Murmur, Pulses Normal, Brisk Capillary Refill Musculoskeletal Exam: Normal Neurological Exam: Normal Psychological Exam: Normal Skin Exam: Normal Throat Pain/Nasal Course/Dx - Course Course Of Treatment: Patient is comfortable here. She states that his Z-Caro has helped her in the past for sinus infections. She is allergic to penicillin and tetracyclines. She also has an ear nose and throat appointment pending - Differential Dx/Diagnosis Provider Diagnosis: Sinusitis Discharge - Sign-Out/Discharge Documenting (check all that apply): Patient Departure All imaging exams completed and their final reports reviewed: No Studies - Discharge Plan Condition: Fair Disposition: HOME Prescriptions: Azithromyxin CARO (NF) [Z-Caro (Zithromax) 250 mg tabs #6] 2 tab PO .TODAY, THEN 1 DAILY #6 tab Patient Education Materials: Sinusitis (ED) Referrals: Stephania Barragan [Primary Care Provider] - Additional Instructions: Continue your present medications. Follow-up with the ear nose and throat physician as scheduled. - Billing Disposition and Condition Condition: FAIR Disposition: Home
== END 2019-05-05 17:10 | disposition home or self-care (01) ==
LOC: UCCORT 16:36
DX: J32.9 Chronic sinusitis, unspecified (principal); Z88.1 Allergy status to other antibiotic agents
CPT/HCPCS: 99212; G0463

== ENCOUNTER 2019-07-29 11:31 | Emergency (ER) | payer MEDICARE, OTHER ==
--- OUTSIDE RECORDS SUMMARY | 2019-07-29 11:40 | XMS REPORT | Continuity of Care Document ---
:1950 External Reference #:[id number] Author Name Fawn Lipscomb, [facility] Address [address] [place] [id number] Care Team Providers Name Role Phone Jovany Humphrey NP - Nurse Practitioner Care Team Information Marketing Services Rep Yasmany Alcantar MD - Gastroenterology Care Team Information Marketing Services Rep Problems Active Problems Provider Date Crohn's disease of large bowel Donell Crouch M.D. Onset: 2012 Arthralgia of the ankle and/or foot Glendy Dickey MD Onset: 06/17/2017 Low back pain Glendy Dickey MD Onset: 05/27/2017 Lumbar spondylosis Glendy Dickey MD Onset: 05/27/2017 Social History Type Date Description Comments Sex Unknown Tobacco Use Start: Unknown Never Smoked Cigarettes ETOH Use Rarely consumes alcohol Tobacco Use Start: Unknown Patient has never smoked Recreational Drug Use Never Used Drugs Smoking Status Reviewed: 06/29/19 Patient has never smoked Exercise Type/Frequency Exercises regularly Allergies, Adverse Reactions, Alerts Active Allergies Reaction Severity Comments Date Penicillins Difficulty breathing 07/07/2013 Tetracycline 07/07/2013 Demerol 07/07/2013 Prednisone Jittery and racing heart 07/07/2013 Bee Sting 07/07/2013 Dye 07/20/2013 Lovastatin 12/20/2014 NSAIDs pt has ulcerative 01/24/2015 colitis Medications Active Medications SIG Qnty Indications Ordering Date Provider Erythromycin one by mouth four 20tabs L02.421 Lyndsay, 06/29/2019 500mg Tablets times a day for [address] rangel Johns. Cyclobenzaprine HCL one tablet by 30tabs M54.5 Glendy Dickey, 06/17/2017 10mg mouth every night MD Tablets at bedtime prn Fioricet 1-2 po q6h prn Unknown 50-325-40mg h/a Tablets Magnesium one daily Unknown 400mg Capsules Riboflavin one daily Unknown 400mg Tablets Acidophilus 1 PO Daily Unknown Capsules Vitamin E one daily Unknown 400Unit Capsules Vitamin C one daily Unknown 1000mg Tablets Fluticasone Propionate 1 [place] In Each Unknown Nare bid 50mcg/Act Suspension Humira use under the Unknown 40mg/0.8ML PSKT skin every other week Apriso 2 caps by mouth Unknown 0.375gm Caps ER 24HR every day Zyrtec Allergy 1 tab by mouth Unknown 10mg Tablets every night Ventolin HFA take 2 puffs Unknown 108(90Base) every 6 hours as mcg/Act Aerosol needed for shortness of breath. Breo Ellipta Inhale 1 puff By Unknown 200-25mcg/Inh Mouth Once Daily Aerosol Rinse Mouth After Use Medications Administered in Office Medication SIG Qnty Indications Ordering Provider Date Depomedrol 40mg/1cc Fawn Lipscomb, 07/25/2019 (methylprednisolone acetate) RPAC Injection Depomedrol 40mg/1cc Fawn Lipscomb, 07/25/2019 (methylprednisolone acetate) RPAC Injection Methylprednisolone acetate Fawn Lipscomb, 12/20/2014 (Depomedrol) 80mg injection RPA Injection Immunizations Description No Information Available Vital Signs Date Vital Result Comment 07/25/2019 9:10am BP Systolic 153 mmHg BP Diastolic 72 mmHg Body Temperature 97.0 F Heart Rate 75 /min Height 65.5 inches 5'5.50" Weight 166.00 lb BMI (Body Mass Index) 27.2 kg/m2 BSA (Body Surface Area) 1.84 m2 [place] body weight in kilograms 58 kg O2 % BldC Oximetry 98 % 06/29/2019 8:22am BP Systolic Sitting Left Arm 136 mmHg BP Diastolic Sitting Left Arm 66 mmHg Heart Rate 69 /min Respiratory Rate 16 /min Height 65 inches 5'5" Weight 165.00 lb BMI (Body Mass Index) 27.5 kg/m2 BSA (Body Surface Area) 1.82 m2 [place] body weight in kilograms 57 kg O2 % BldC Oximetry 98 % Ra Results Test Acquired Date Facility Test Result H/L Range Note Xray 07/25/2019 [facility] Practice - Orthopedic RMP, Knee, RT, Ap, < pending> [facility] ([address] [place] [phone] view) [phone] Procedures Date Code Description Status 07/25/2019 40571 Radiology, Knee 3 Views Completed 07/25/2019 68287 Asp./Injection major joint Completed 12/20/2018 [id number] Mammogram Completed 09/21/2008 501863073 Bone Mineral Density Test Completed 09/21/1996 56334743 Colonoscopy Completed Medical Devices Description No Information Available Encounters Type Date Location Provider Dx Diagnosis Office Visit 07/25/2019 Orthopaedic Office Fawn Lipscomb M17.11 Unilateral primary 9:00a SUSAN One[place] osteoarthritis, right knee M25.561 Pain in right knee M25.461 Effusion, right knee Office Visit 06/29/2019 8:20a Pulmonology Clarita Ulloa, J45.20 Mild intermittent [place] asthma, uncomplicated L02.421 Furuncle of right axilla Assessments Date Code Description Provider 07/25/2019 M17.11 Unilateral primary osteoarthritis, right Fawn Lipscomb RPA knee 07/25/2019 M25.561 Pain in right knee Fawn Lipscomb RPA 07/25/2019 M25.461 Effusion, right knee Fawn Lipscomb [facility] 06/29/2019 J45.20 Mild intermittent asthma, uncomplicated Clarita Ulloa, [place] 06/29/2019 L02.421 Furuncle of right axilla Clarita Ulloa, [place] Plan of Treatment Future Appointment(s):08/22/2019 9:15 am - Fawn Lipscomb RPAC at [facility]opa[facility] [id number]/25/2019 - Fawn Lipscomb RPACM17.11 Unilateral primary osteoarthritis, right kneeM25.561 Pain in right kneeM25.461 Effusion, right knee Functional Status Description No Information Available Mental Status Description No Information Available Referrals Description No Information Available
--- OUTSIDE RECORDS SUMMARY | 2019-07-29 11:40 | XMS REPORT | Continuity of Care Document ---
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 Problems Active Problems Provider Date Crohn's disease [...] daily Unknown 1000mg Tablets Fluticasone Propionate 1 [place] In Each Unknown Nare bid 50mcg/Act Suspension [...] Available Vital Signs Date Vital Result Comment 06/29/2019 8:22am BP Systolic Sitting Left Arm 136 mmHg BP Diastolic Sitting Left Arm 66 mmHg Heart Rate 69 /min Respiratory Rate 16 /min Height 65 inches 5'5" Weight 165.00 lb BMI (Body Mass Index) 27.5 kg/m2 BSA (Body Surface Area) 1.82 m2 [place] body weight in kilograms 57 kg O2 % BldC Oximetry 98 % Ra 12/27/2018 3:03pm BP Systolic Sitting Left Arm 120 mmHg BP Diastolic Sitting Left Arm 68 mmHg Heart Rate 75 /min Respiratory Rate 16 /min Height 65 inches 5'5" Weight 161.00 lb BMI (Body Mass Index) 26.8 kg/m2 BSA (Body Surface Area) 1.80 m2 [place] body weight in kilograms 57 kg O2 Saturation Level with Exercise 93 % Results Description No Information Available Procedures Date Code Description Status 12/20/2018 81431037 Mammogram Completed 09/21/2008 230444036 Bone Mineral Density Test Completed 09/21/1996 59743822 Colonoscopy Completed Medical Devices Description No Information Available Encounters Type Date Location Provider Dx Diagnosis Office Visit 06/29/2019 Pulmonology Clarita Ulloa J45.20 Mild intermittent 8:20a [place] asthma, uncomplicated L02.421 Furuncle of right axilla Assessments Date Code Description Provider 06/29/2019 J45.20 Mild intermittent asthma, uncomplicated Clarita Ulloa PA 06/29/2019 L02.421 Furuncle of right axilla Clarita Ulloa PA Plan of Treatment 06/29/2019 - Clarita Ulloa PAJ45.20 Mild intermittent asthma, uncomplicatedComments:Always carry rescue inhaler with you. Before using inhaler , blow out as much as you can, then inhaleand try to hold for at least ten seconds. Keep using Breo, zyrtec, flonase daily.Follow up with yourprimary doctor.L02.421 Furuncle of right axillaNew Medication:Erythromycin 500 mg - one by mouth four times a day for 5 days.Comments:Please apply hot pack as often as possible.We will start you on antibiotics, Keflex 500 mg four times day for five days, take with a little food to reduce GI upset.Following up with your primary doctor on Thursday.If you develop fevers, chills, body aches, increased redness, drainage, go to the ER. Goals 06/29/2019 - Clarita Ulloa PAJ45.20 Mild intermittent asthma, uncomplicatedBefore using inhaler, blow out as much as you can, then inhale and try to hold for at least ten seconds. Functional Status Description No Information Available Mental Status Description No Information Available Referrals Description No Information Available
--- OUTSIDE RECORDS SUMMARY | 2019-07-29 11:40 | XMS REPORT | Continuity of Care Document ---
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 Yasmany Alcantar MD - Gastroenterology Care Team Information Lottery Sales Clerk [phone] Problems Active Problems Provider Date Crohn's disease [...] Cyclobenzaprine HCL one tablet by 30tabs M54.5 Gledny Dickey, 06/17/2017 10mg mouth every night MD Tablets at bedtime prn Fioricet 1-2 po q6h prn Unknown 50-325-40mg h/a Tablets Magnesium one daily Unknown 400mg Capsules Riboflavin one daily Unknown 400mg Tablets Acidophilus 1 PO Daily Unknown Capsules Vitamin E one daily Unknown 400Unit Capsules Vitamin C one daily Unknown 1000mg Tablets Fluticasone Propionate 1 [place] In Each Unknown Nare bid 50mcg/Act Suspension [...] kg/m2 BSA (Body Surface Area) 1.84 m2 [place] body weight in kilograms 58 kg O2 % BldC Oximetry 98 % 06/29/2019 8:22am BP Systolic Sitting Left Arm 136 mmHg BP Diastolic Sitting Left Arm 66 mmHg Heart Rate 69 /min Respiratory Rate 16 /min Height 65 inches 5'5" Weight 165.00 lb BMI (Body Mass Index) 27.5 kg/m2 BSA (Body Surface Area) 1.82 m2 [place] body weight in kilograms 57 kg O2 % BldC Oximetry 98 % Ra Results Test Acquired Date Facility Test Result H/L Range Note Xray 07/25/2019 [facility] Medical Practice - Orthopedic RMP, Knee, RT, Ap, < pending> [address] [facility] ([address] [place] [phone] view) [phone] Procedures Date Code Description Status 07/25/2019 13755 Radiology, Knee 3 Views Completed 07/25/2019 02228 Asp./Injection major joint Completed 12/20/2018 [id number] Mammogram Completed 09/21/2008 506269513 Bone Mineral Density Test Completed 09/21/1996 86250168 Colonoscopy Completed Medical Devices Description No Information Available Encounters Type Date Location Provider Dx Diagnosis Office Visit 06/29/2019 Pulmonology Clarita Ulloa J45.20 Mild intermittent 8:20a [place] asthma, uncomplicated L02.421 Furuncle of right axilla Assessments Date Code Description Provider 07/25/2019 M17.11 Unilateral primary osteoarthritis, right Fawn Lipscomb [facility] knee 07/25/2019 M25.561 Pain in right knee Fawn Lipscomb [facility] 06/29/2019 J45.20 Mild intermittent asthma, uncomplicated Clarita Ulloa PA 06/29/2019 L02.421 Furuncle of right axilla Clarita Ulloa PA Plan of Treatment No Information Available Functional Status Description No Information Available Mental Status Description No Information Available Referrals Description No Information Available
[2019-07-29 13:20] VITALS: BP 142/74
--- NOTE | 2019-07-29 13:43 | UC ---
Skin Complaint HPI - HPI Summary HPI Summary: 68 yo female with two small abscess x days one left axilla one buttock no fever has been on steroids (oral and intrarticular) of late - History of Current Complaint Chief Complaint: UCSkin Stated Complaint: SKIN CONCERN Hx Obtained From: Patient Onset/Duration: Sudden Onset, Lasting Weeks Skin Exposure Onset/Duration: Hours Ago Onset Severity: Mild Current Severity: Mild Pain Intensity: 0 Pain Scale Used: 0-10 Numeric Location: Discrete Character: Swelling, Pain, Redness Aggravating Factor(s): Touch Alleviating Factor(s): Heat Associated Signs & Symptoms: Positive: Tenderness - Allergy/Home Medications Allergies/Adverse Reactions: Allergies Allergy/AdvReac Type Severity Reaction Status Date / Time aspirin Allergy Bleeding Verified 07/29/19 13:10 ibuprofen Allergy Bleeding Verified 07/29/19 13:10 meperidine [From Demerol] Allergy syncope Verified 07/29/19 13:10 Penicillins Allergy Rash Verified 07/29/19 13:10 prednisone Allergy Tachycardia, Verified 07/29/19 13:10 shakes Tetracyclines Allergy Rash Verified 07/29/19 13:10 bee sting Allergy Anaphylatic Uncoded 07/29/19 13:10 Shock environmental Allergy Congestion Uncoded 07/29/19 13:10 statins Allergy Pain Uncoded 07/29/19 13:10 PMH/Surg Hx/FS Hx/Imm Hx Previously Healthy: Yes - UC Respiratory History: Asthma GI/ History: Ulcer - Surgical History Surgical History: Yes Surgery Procedure, Year, and Place: left foot 06/17/18; sinus; left knee, cervical sx with hardware placed. polypectomy nasal - Family History Known Family History: Positive: Other - adopted...know little of her family history - Social History Alcohol Use: Weekly Substance Use Type: None Smoking Status (MU): Never Smoked Tobacco Review of Systems All Other Systems Reviewed And Are Negative: Yes Constitutional: Positive: Negative Skin: Positive: Other - see image Eyes: Positive: Negative ENT: Positive: Negative Respiratory: Positive: Negative Cardiovascular: Positive: Negative Gastrointestinal: Positive: Negative Genitourinary: Positive: Negative Motor: Positive: Negative Neurovascular: Positive: Negative Musculoskeletal: Positive: Negative Neurological: Positive: Negative Psychological: Positive: Negative Physical Exam Triage Information Reviewed: Yes Appearance: Well-Appearing, No Pain Distress, Well-Nourished Vital Signs: Initial Vital Signs Temp 97.2 F 11/08/19 13:15 Pulse 68 07/29/19 13:15 Resp 18 07/29/19 13:15 BP 142/74 07/29/19 13:15 Pulse Ox 98 07/29/19 13:15 Vital Signs Reviewed: Yes Eyes: Positive: Conjunctiva Clear ENT: Positive: Hearing grossly normal, Uvula midline. Negative: Pharyngeal erythema, Nasal congestion, Nasal drainage, Tonsillar swelling, Tonsillar exudate Dental Exam: Normal Neck: Positive: Supple, Nontender, No Lymphadenopathy Respiratory: Positive: Lungs clear, Normal breath sounds, No respiratory distress Cardiovascular: Positive: RRR, No Murmur Musculoskeletal: Positive: ROM Intact, No Edema Neurological: Positive: Alert Psychological Exam: Normal Skin Exam: Other - see image Images Front/Back of Body, Lg ([place]): 1 - early abscess 2 - early abscess Course/Dx - Diagnoses Provider Diagnosis: Cutaneous abscess of axilla, Cutaneous abscess of buttock Discharge ED - Sign-Out/Discharge Documenting (check all that apply): Patient Departure All imaging exams completed and their final reports reviewed: No Studies - Discharge Plan Condition: Stable Disposition: HOME Prescriptions: Cephalexin CAP* [Keflex CAP*] 500 mg PO QID #28 cap Patient Education Materials: Abscess (ED) Referrals: No Primary Care Phys,NOPCP [Primary Care Provider] - Additional Instructions: warm compresses recheck with your MD early next week if not better - Billing Disposition and Condition Condition: STABLE Disposition: Home
== END 2019-07-29 13:56 | disposition home or self-care (01) ==
LOC: UCCORT 11:31
DX: L02.412 Cutaneous abscess of left axilla (principal); L02.31 Cutaneous abscess of buttock; Z88.5 Allergy status to narcotic agent; Z88.0 Allergy status to penicillin; Z88.8 Allergy status to other drugs, medicaments and biological substances; Z88.6 Allergy status to analgesic agent; Z88.1 Allergy status to other antibiotic agents; Z91.030 Bee allergy status
CPT/HCPCS: 99212; G0463